=== PATIENT | female | born 1985 | race Caucasian/White ===

== ENCOUNTER 2018-01-29 10:31 | Emergency (ER) | payer OTHER, SELFPAY ==
[2018-01-29 10:32] VITALS: BP 131/98; PULSE 89; RESP 16; TEMP 36.3; O2SAT 96; BMI 30.9
--- NOTE | 2018-01-29 10:52 | ED.DCSUM_ITS ---
- ER Visit Summary Date of Service: 01/29/18 Chief Complaint: Abdominal pain History of Present Illness: The patient is a 33 F who woke late last night with abdominal cramping, nausea, and diarrhea. She reports 5 or 6 episodes of diarrhea overnight. This morning she noted her stool was black in color. She has no history of ulcers and no known family history of ulcerative colitis or Crohn's. She does admit to taking Pepto twice overnight. Physical Examination: Vital signs are unremarkable. Head neck examination is normal. Heart is regular rate and rhythm. Lung sounds are clear. Abdomen is soft with mild diffuse tenderness palpation. There is no guarding or rebound. Hypoactive bowel sounds noted. Rectal examination feels no obvious hemorrhoids. No gross blood on gloved finger. Test Results: CBC and chemistry studies are unremarkable. Stool Hemoccult is negative for blood. Emergency Department Course and Treatment: Patient is given IV fluids, Zofran, and p.o. Bentyl. On repeat evaluation she is resting comfortably. I did explain to her that I believe the dark-colored stool is secondary to the Pepto that she took. Treatment Plan: [] Disposition: Discharge Impression: Gastroenteritis This note was generated with [employer] dictation software. It may contain incorrect words, spelling, and punctuation that were not noted in review of the chart prior to signing ED Disposition - Plan for ED Patient: Chief Complaint: Abd Pain Referrals: Yifan Cobian DO [Primary Care Provider] -
[2018-01-29] MEDS: 0.9% Normal Saline 1,000 ML 1000 ML IV (11:21)
[2018-01-29] MEDS: Ondansetron 4 MG/2 ML Vial IV (11:21)
[2018-01-29] MEDS: Dicyclomine 10 MG Capsule 20 MG PO (11:22)
[2018-01-29 11:35] LABS: Absolute Lymphocyte Count 1.24 X10^3/ul (0.83-4.51); Absolute Neutrophil Count 3.1 X10^3/uL (2.0-7.7); Basophil# 0.03 X10^3/uL; Basophil% 0.6 % (0-1); Eosinophil# 0.06 X10^3/uL; Eosinophils% 1.2 % (0-5); Hematocrit 41.3 % (37-47); Hemoglobin 13.8 g/dl (12.0-15.0); Lymphocyte # 1.24 X10^3/ul (4.0); Lymphocyte % 24.2 % (19-41); Mean Corp Hgb Conc 33.4 g/gl (32-36); Mean Corpuscular Hgb 31.4 pg (27.0-32.0); Mean Corpuscular Volume 94.1 fL (81-99); Mean Platelet Vol. 11.3 fl (6.2-12.0); Monocyte# 0.66 X10^3/uL; Monocyte% 12.9 % (0-10); Neutrophil # 3.13 X10^3/uL (2.7-7.7); Neutrophil % 61.1 % (47-70); Platelet Count 259 K/mm3 (150-450); RBC Distribution Width CV 12.2 % (11.6-14.6); RBC Distribution Width SD 41.8 fl (35.1-43.9); Red Blood Count 4.39 M/mm3 (4.2-5.4); White Blood Count 5.1 K/mm3 (4.4-11.0)
[2018-01-29 11:36] LABS: POSITIVE COUNT NO; POSITIVE DIFFERENTIAL NO; POSITIVE MORPHOLOGY NO
[2018-01-29 11:43] LABS: Anion Gap 6 (5-15); BUN 12 mg/dL (7-18); BUN/Creat Ratio 15.5 RATIO (10-20); Calcium,Total 8.7 mg/dL (8.5-10.1); Chloride 109 mmol/L (98-107); Creatinine, Serum 0.77 mg/dL (0.55-1.02); EST Glomerular Filtration Rate 92 mL/min (>60); Est Glom Filt Rate - Afr Amer 112 mL/min (>60); Estimated Creatinine Clearance 102.94 ml/min; Glucose 79 mg/dL (74-106); Potassium 3.9 mmol/L (3.5-5.1); Sodium Level 141 mmol/L (136-145)
--- NOTE | 2018-01-29 11:56 | ED.DEP ---
ED Disposition - Plan for ED Patient: Disposition: Home or Assisted Living Chief Complaint: Abd Pain Instructions: ED Gastroenteritis Vs Food Poison Prescriptions: Ondansetron [Zofran Odt] 4 mg PO Q8H PRN PRN #10 tablet PRN Reason: Nausea Referrals: Yifan Cobian DO [Primary Care Provider] - 1 Week if not improving
== END 2018-01-29 12:14 | disposition home or self-care (01) ==
PROVIDERS: Emergency Provider Emergency Medicine; Family Provider Student in an Organized Health Care Education/Training Program; PCP Student in an Organized Health Care Education/Training Program
DX: K52.9 Noninfective gastroenteritis and colitis, unspecified (principal)
CPT/HCPCS: 80048; 82274; 85025; 96361; 96374; 99283; J7030; A4216; J2405